=== PATIENT | female | born 1955 | race Caucasian/White ===

== ENCOUNTER 2016-11-30 02:15 | Emergency (ER) | payer OTHER ==
[~2016-11-30] VITALS: Ht 165.1 cm; Wt 78.0 kg
[~2016-11-30 02:15] MED LIST: ALPR.25T PO; ALPR0.2550; ASP81TEC PO; CALC-80 PO; CYCL10TA9 PO; FEXO180T; FURO20TA4 PO; IRBE1TAB15 PO; LEVO5TAB12 PO; MMT17NA; MTP25TSR PO; MULT-963 PO; NAPR550T PO; NF-ESOM40C PO; NF-LOVAZAC PO; OMEG1CAP51; POTASSIUM PO; TRAZ50TA67 PO; TRIAMCINOL NSEACH; VITA1CAP59 PO; VIVELLE TD
[2016-11-30] MEDS ORDERED: OMEG-105 (02:31)
[2016-11-30] MEDS ORDERED: ESTR10TA4 (02:31)
[2016-11-30] MEDS ORDERED: MIRA25TA (02:31)
[2016-11-30] MEDS ORDERED: CALC-6 PO (02:31)
[2016-11-30] MEDS ORDERED: LEVO5TAB12 (02:31)
[2016-11-30] MEDS ORDERED: POTA20TA8 (02:31)
[2016-11-30] MEDS ORDERED: ALPR0.254 (02:31)
[2016-11-30] MEDS ORDERED: ESOM40CA52 (02:31)
[2016-11-30] MEDS ORDERED: METO-270 (02:31)
[2016-11-30] MEDS ORDERED: IRBE1TAB41 (02:31)
[2016-11-30] MEDS ORDERED: TRAZ-28 PO (02:32)
[2016-11-30] MEDS ORDERED: ASPI-999 PO (02:32)
[2016-11-30 02:43] LABS: BILIRUBIN,URINE NEGATIVE (NEGATIVE); KETONES,URINE NEGATIVE (NEGATIVE); LEUKOCYTE ESTERASE ,URINE 3+ (NEGATIVE); NITRITE,URINE NEGATIVE (NEGATIVE); PH,URINE 6 (5-9); PROTEIN,URINE 4+ (NEGATIVE); UROBILINOGEN,URINE 1 MG/DL (NORMAL)
[2016-11-30 02:48] LABS: CALCIUM OXALATE CRYSTALS,UR FEW /LPF; SQUAMOUS EPITHELIAL CELL,UR 0-2 /HPF
[2016-11-30] MEDS ORDERED: NITR-65 PO (03:43)
[2016-11-30] MEDS ORDERED: PHEN-640 PO (03:43)
--- NOTE | 2016-11-30 03:43 | ED GU-Female ---
General Chief Complaint: -Female Stated Complaint: BLADDER PAIN,BLOOD IN URINE Nursing Triage Note: Patient reports waking up at 0100 to urinate and noticed that she had blood in her urine and keeps to feel that she has to void and isn't able to void much Nursing Sepsis Screen: No Definite Risk Source: patient Exam Limitations: no limitations History of Present Illness Time seen by provider: 02:19 Initial Comments This 61-year-old lady presents to the emergency room with dysuria and hematuria this started around 01:00. She woke with these symptoms. She has some suprapubic pressure associated with these symptoms. She denies fever, nausea, vomiting, diarrhea, constipation, or any other acute symptoms. Allergies and Home Medications Allergies Coded Allergies: No Known Drug Allergies (Verified , 12/22/09) Home Medications Alprazolam 0.25 Mg Tablet #90 (Reported) Aspirin 81 Mg Tab.chew 81 MG PO (Reported) Calcium Carbonate/Vitamin D3 1 Each Tablet 1 EACH PO (Reported) Esomeprazole Magnesium 40 Mg Capsule.dr #90 (Reported) Estradiol 10 Mcg Tablet #24 (Reported) Irbesartan/Hydrochlorothiazide 1 Tab Tablet 1 TAB PO DAILY (Reported) Irbesartan/Hydrochlorothiazide 1 Each Tablet #90 (Reported) Levocetirizine Dihydrochloride 5 Mg Tablet #90 (Reported) Metoprolol Succinate 25 Mg Tab.er.24h #90 (Reported) Mirabegron 25 Mg Tab.er.24h #90 (Reported) Nitrofurantoin Monohyd/M-Cryst 100 Mg Capsule #14 100 MG PO BID Prescribed by: SIENA RAJAN on 11/30/16 0343 [place]-3 Acid Ethyl Esters 1 Gm Capsule #360 (Reported) Phenazopyridine HCl 200 Mg Tablet #15 1 TAB PO TID PRN PRN PAIN Prescribed by: SIENA RAJAN on 11/30/16 0343 Potassium Chloride 20 Meq Tab.er.prt #90 (Reported) Trazodone HCl 50 Mg Tablet 50 MG PO (Reported) Constitutional: no symptoms reported EENTM: no symptoms reported Respiratory: no symptoms reported Cardiovascular: no symptoms reported Gastrointestinal: no symptoms reported Genitourinary: see HPI Musculoskeletal: no symptoms reported Skin: no symptoms reported Psychiatric/Neurological: No Symptoms Reported Past Hnrwxal-Cnwnlr-Wkgdkx Hx Patient Social History Alcohol Use: Denies Use Recreational Drug Use: No Smoking Status: Former Smoker (quit 2004) Recent Foreign Travel: No Contact w/Someone Who Travel: No Recent Infectious Disease Expo: No Recent Hopitalizations: No Physical Abuse Screen: No Sexual Abuse: No Immunizations Up To Date Date of Pneumonia Vaccine: Sep 21, 2009 Date of Influenza Vaccine: Sep 01, 2012 Surgeries HX Surgeries: Yes (bilateral hip) Surgeries: Adenoidectomy, Ear Surgery, Gallbladder, Hysterectomy, Joint Replacement, Orthopedic, Tonsillectomy Respiratory Hx Respiratory Disorders: No Cardiovascular Hx Cardiac Disorders: Yes Cardiac Disorders: Hypertension Neurological Hx Neurological Disorders: No Reproductive System Hx Reproductive Disorders: No Genitourinary Hx Genitourinary Disorders: No Gastrointestinal Hx Gastrointestinal Disorders: No Musculoskeletal Hx Musculoskeletal Disorders: Yes (HIP REPLACEMENT) Endocrine Hx Endocrine Disorders: No HEENT HX ENT Disorders: No Cancer Hx Cancer: No Psychosocial Hx Psychiatric Problems: No Blood Transfusions Hx Blood Disorders: No Physical Exam Vital Signs Vital Sign - Last 12Hours 11/30/16 02:25 Temp 97.6 Pulse 100 Resp 18 B/P 148/95 Pulse Ox 98 Capillary Refill : Less Than 3 Seconds General Appearance: WD/WN no apparent distress HEENT: normal ENT inspection Cardiovascular: regular rate, rhythm no edema no murmur Respiratory: lungs clear normal breath sounds no respiratory distress no accessory muscle use Gastrointestinal: soft tenderness (mild suprapubic tenderness) Back: no CVA tenderness Extremities: normal inspection Neurologic/Psychiatric: bench assembler II-XII nml as tested no motor/sensory deficits alert normal mood/affect oriented x 3 Skin: normal color warm/dry Progress/Results/Core Measures Results/Orders Lab Results Laboratory Tests Test 11/30/16 02:25 Range/Units Urine Bacteria FEW H /HPF Urine Bilirubin NEGATIVE NEGATIVE Urine Calcium Oxalate Crystals FEW H /LPF Urine Casts NONE /LPF Urine Clarity BLOODY H Urine Color RED H Urine Crystals PRESENT H /LPF Urine Culture Indicated YES Urine Glucose (UA) NEGATIVE NEGATIVE Urine Ketones NEGATIVE NEGATIVE Urine Leukocyte Esterase 3+ H NEGATIVE Urine Mucus NEGATIVE /LPF Urine Nitrite NEGATIVE NEGATIVE Urine Protein 4+ NEGATIVE Urine RBC TNTC H /HPF Urine RBC (Auto) 5+ H NEGATIVE Urine Specific [place] 1.025 H 1.016-1.022 Urine Squamous Epithelial Cells 0-2 /HPF Urine Urobilinogen 1 NORMAL MG/DL Urine WBC 5-10 H /HPF Urine pH 6 5-9 My Orders Orders-SIENA ZULETA MD Ua Culture If Indicated (11/30/16 02:19) Urine Culture (11/30/16 02:25) Phenazopyridine Tablet (Pyridium Tablet) (11/30/16 03:45) Nitrofurantoin Capsule,Macro (Macrobid C (11/30/16 03:45) Nitrofurantoin Capsule (Macrodantin Caps (11/30/16 03:45) Medications Given in ED Current Medications Medications Dose Ordered Sig/Jolly Route Start Time Stop Time Status Last Admin Dose Admin Nitrofurantoin Macrocrystals 100 mg ONCE ONCE PO 11/30/16 03:45 11/30/16 03:47 DC 11/30/16 03:47 100 MG Phenazopyridine HCl 200 mg ONCE ONCE PO 11/30/16 03:45 11/30/16 03:46 DC 11/30/16 03:48 200 MG Vital Signs/I&O Vital Sign - Last 12Hours 11/30/16 11/30/16 02:25 03:50 Temp 97.6 97.6 Pulse 100 100 Resp 18 18 B/P 148/95 Pulse Ox 98 98 Blood Pressure Mean: 112 Progress Note : Progress Note Patient's symptoms and degree of pain are not really consistent with ureteral stone. Patient's UA is consistent with urinary tract infection with significant hematuria. She was started on Macrobid and Pyridium. The importance of close follow-up was stressed especially given hematuria in context of her smoking history. Departure Impression Impression: Primary Impression: Urinary tract infection Qualified Code: N39.0 - Urinary tract infection, site not specified Additional Impression: Hematuria Disposition: 01 HOME, SELF-CARE Condition: Improved Departure-Patient Inst. Decision time for Depature: 03:35 Referrals: MERARI TILLEY DO (PCP/Family) Primary Care Physician Patient Instructions: Blood in the Urine (Hematuria) in Adults, Urinary Tract Infection, Adult (DC) Add. Discharge Instructions: Complete your antibiotics as prescribed unless otherwise instructed. Drink plenty of clear liquids. Follow-up with your primary care provider by phone or with the emergency room by phone in about 48 hours to review urine culture. This will ensure you're taking an antibiotic effective for your particular bladder infection. You need to follow-up with your primary care provider in 1 or 2 weeks to have a repeat urinalysis to ensure the blood in your urine clears. Return to the emergency room if symptoms worsen. Please be aware that both of your prescribed medications may cause and oranges sure reddish color change to your urine. All discharge instructions reviewed with patient and/or family. Voiced understanding. Scripts Phenazopyridine HCl (Pyridium)200 Mg Tablet1 Tab PO TID PRN PAIN #15 TAB Prov:SIENA ZULETA MD 11/30/16 Nitrofurantoin Monohyd/M-Cryst (Macrobid 100 mg Capsule)100 Mg Ujolhpy445 Mg PO BID #14 EA Prov:SIENA ZULETA MD 11/30/16 SIENA ZULETA MD Nov 30, 2016 03:43
[2016-11-30] MEDS ORDERED: PHENAZOPYRIDINE 100 MG (PYRIDIUM) TABLET PO ONE (03:45)
[2016-11-30] MEDS ORDERED: NITROFURANTOIN 50 MG (MACRODANTIN) CAP PO ONE (03:45)
[2016-11-30] MEDS ORDERED: NITROFURANTOIN 100 MG (MACROBID) CAPSULE PO ONE (03:45)
[2016-11-30 03:50] VITALS: BP 148/95
== END 2016-11-30 03:49 | disposition home or self-care (01) ==
LOC: EDUNIT# 02:15 → ER 02:19
DX: N39.0 Urinary tract infection, site not specified (principal); R31.9 Hematuria, unspecified; I10 Essential (primary) hypertension; Z79.82 Long term (current) use of aspirin; Z79.899 Other long term (current) drug therapy
CPT/HCPCS: 81000; 87088; 87186; 99283

== ENCOUNTER → 2017-02-07 | Outpatient (CLI) | payer OTHER ==
[~2017-02-07] MED LIST changes: +ALPR0.254; +ASPI-999 PO; +CALC-6 PO; +ESOM40CA52; +ESTR10TA4; +IRBE1TAB41; +LEVO5TAB12; +METO-270; +MIRA25TA; +NITR-65 PO; +OMEG-105; +PHEN-640 PO; +POTA20TA8; +TRAZ-28 PO
--- OUTSIDE RECORDS SUMMARY | 2017-02-07 07:32 | XMS REPORT | Continuity of Care Document ---
Author Author [facility] Organization [facility] Address Unknown Phone Unavailable Care Team Providers Care Irrigation Manager Name Role Phone MERARI TILLEY DO PCP Insurance Providers Payer Name Policy Number Subscriber Name Relationship [facility] [id number] Woody Xiao 18 Self / Same As Patient Advance Directives Directive Response Recorded Date/Time Advance Directives No 11/30/16 2:25am Health Care Power of Sr. Payroll Processor No 11/30/16 2:25am Organ Donor No 11/30/16 2:25am Resuscitation Status Full Code 11/30/16 2:25am Chief Complaint and Reason for Visit Chief Complaint -Female Reason for Visit Urinary tract infection Hematuria Problems Active Problems Medical Problem Onset Date Status Contusion, hip Unknown Acute Hematuria Unknown Acute Muscle strain Unknown Acute Urinary tract infection Unknown Acute Medications Current Home Medications Medication Dose Units Route Directions Days/Qty Instructions Start Date Irbesartan/Hydrochlorothiazide 1 Tab 1 Tab Oral Daily 12/21/09 Estradiol 10 Mcg 24 11/30/16 Mirabegron 25 Mg 90 11/30/16 Metoprolol Succinate 25 Mg 90 11/30/16 [place]-3 Acid Ethyl Esters 1 Gm 360 11/30/16 Alprazolam 0.25 Mg 90 11/30/16 Calcium Carbonate/Vitamin D3 1 Each 1 Each Oral 11/30/16 Potassium Chloride 20 Meq 90 11/30/16 Esomeprazole Magnesium 40 Mg 90 11/30/16 Levocetirizine Dihydrochloride 5 Mg 90 11/30/16 Irbesartan/Hydrochlorothiazide 1 Each 90 11/30/16 Trazodone Hcl 50 Mg 50 Mg Oral 11/30/16 Aspirin 81 Mg 81 Mg Oral 11/30/16 Nitrofurantoin Monohyd/M-Cryst 100 Mg 100 Mg Oral Twice A Day 14 11/30 Phenazopyridine Hcl 200 Mg 1 Tab Oral Three Times A Day as needed for Pain 15 11/30/16 Past Home Medications Medication Directions Ordered Status Alprazolam 0.25 Mg Tab.rapdis, 12/21/09 Discontinued Alprazolam 0.25 Mg Tablet, 1 Tab Oral Daily 12/21/09 Discontinued Fexofenadine Hcl 180 Mg Tablet, 12/21/09 Discontinued Furosemide (Lasix) 20 Mg Tablet, 20 Mg Oral Every Other Day 12/21/09 Discontinued Mometasone Furoate 17 Gm [place], 12/21/09 Discontinued [place]-3 Fatty Acids/Fish Oil 1 Each Capsule, 12/21/09 Discontinued Metoprolol Succinate (Metoprolol Er 25MG) 25 Mg Tab, 25 Mg Oral Bedtime 12/21 Discontinued Esomeprazole Magnesium 40 Mg Capsule.dr, 40 Mg Oral Bedtime 12/21/09 Discontinued Trazodone Hcl 50 Mg Tablet, 50 Mg Oral Bedtime 12/21/09 Discontinued Xbmwz-8-Sdpv Ethyl Esters 1 Gm Capsule, 2 Cap Oral Twice A Day 07/02/12 Discontinued Levocetirizine Dihydrochloride 5 Mg Tablet, 1 Tab Oral Daily 07/02/12 Discontinued [Vivelle] , 1 Patch Transderm Every 5 Days 07/02/12 Discontinued [Potassium] , 1 Tab Oral Daily 07/02/12 Discontinued Naproxen Sodium 550 Mg Tablet, 550 Mg Oral Twice A Day 07/02/12 Discontinued Cyclobenzaprine Hcl (Flexeril) 10 Mg Tablet, 1 Each Oral Three Times A Day And Prn 07/02/12 Discontinued Calcium Carbonate/Vitamin D3 1 Each Tablet, 1 Each Oral Twice A Day 10/06/12 Discontinued Multivitamin 1 Each Tablet, 1 Each Oral Daily 10/06/12 Discontinued Vitamin B Complex 1 Cap Capsule, 1 Cap Oral Daily 10/06/12 Discontinued Aspirin 81 Mg [place], 81 Mg Oral Daily 10/06/12 Discontinued [Triamcinol [place]] , 2 Spr Each Nostril Daily 10/06/12 Discontinued Social History Social History Problem Response Recorded Date/Time Alcohol Use Denies Use 11/30/2016 2:25am Recreational Drug Use No 11/30/2016 2:25am Recent Foreign Travel No 11/30/2016 2:25am Recent Infectious Disease Exposure No 11/30/2016 2:25am Hospitalization with Isolation Denies 11/30/2016 2:25am Smoking Status Never a Smoker 11/30/2016 2:25am Recent Hopitalizations No 11/30/2016 2:25am Hospitalization with Isolation Denies 11/30/2016 2:25am Query Response Start Date Stop Date Smoking Status Never a Smoker Hospital Discharge Instructions No hospital discharge instructions. Plan of Care Discharge Date 11/30/16 3:49am Disposition 01 HOME, SELF-CARE Condition at Discharge Improved Instructions/Education Provided Blood in the Urine (Hematuria) in Adults Urinary Tract Infection, Adult (DC) Prescriptions See Medication Section Referrals MERARI TILLEY DO - Primary Care Physician Additional Instructions/Education Complete your antibiotics as prescribed unless otherwise instructed. Drink plenty of clear liquids. Follow-up with your primary care provider by phone or with the emergency room by phone in about 48 hours to review urine culture. This will ensure you're taking an antibiotic effective for your particular bladder infection. You need to follow-up with your primary care provider in 1 or 2 weeks to have a repeat urinalysis to ensure the blood in your urine clears. Return to the emergency room if symptoms worsen. Please be aware that both of your prescribed medications may cause and oranges sure reddish color change to your urine. All discharge instructions reviewed with patient and/or family. Voiced understanding. Functional Status No functional status results. Allergies, Adverse Reactions, Alerts No known allergies. Immunizations No immunization records. Vital Signs Acute Vital Signs Vital Response Date/Time Temperature (Fahrenheit) 97.6 degrees F (97.6 - 99.5) 11/30/2016 2:25am Temperature (Calculated Celsius) 36.91731 degrees C (36.4 - 37.5) 11/30/2016 2:25am Pulse Rate (adult) 100 bpm (60 - 90) 11/30/2016 2:25am Respiratory Rate 18 bpm (12 - 24) 11/30/2016 2:25am O2 Sat by Pulse Oximetry 98 % (88 - 100) 11/30/2016 2:25am Blood Pressure 148/95 mm Hg 11/30/2016 2:25am Blood Pressure Mean 112 mm Hg 11/30/2016 2:25am Pain Numeric Pain Scale 0-No Pain 11/30/2016 2:25am Height (Feet) 5 feet 11/30/2016 2:25am Height (Inches) 5 inches 11/30/2016 2:25am Height (Calculated Centimeters) 165.417089 cm 11/30/2016 2:25am Weight (Pounds) 172 pounds 11/30/2016 2:25am Weight (Calculated Kilograms) 78.264560 kilograms 11/30/2016 2:25am Capillary Refill Capillary Refill Less Than 3 Seconds 11/30/2016 2:25am Height 5 ft 5 in Weight 172 lb Body Mass Index 28.6 kg/m^2 Results Laboratory Results Test Name Result Units Flags Reference Collection Date/Time Result Date/ Time Comments Urine Color RED * 11/30/2016 2:25am 11/30/2016 2:49am Urine Clarity BLOODY * 11/30/2016 2:25am 11/30/2016 2:49am Urine pH 6 5-9 11/30/2016 2:25am 11/30/2016 2:49am Urine Specific [place] 1.025 * 1.016-1.022 11/30/2016 2:25am 2016 2:49am Urine Protein 4+ NEGATIVE 11/30/2016 2:25am 11/30/2016 2:49am Urine Glucose (UA) NEGATIVE NEGATIVE 11/30/2016 2:25am 11/30/2016 2: 49am Urine RBC (Auto) 5+ * NEGATIVE 11/30/2016 2:25am 11/30/2016 2:49am Urine Ketones NEGATIVE NEGATIVE 11/30/2016 2:25am 11/30/2016 2:49am Urine Nitrite NEGATIVE NEGATIVE 11/30/2016 2:25am 11/30/2016 2:49am Urine Bilirubin NEGATIVE NEGATIVE 11/30/2016 2:25am 11/30/2016 2: 49am Urine Urobilinogen 1 MG/DL NORMAL 11/30/2016 2:25am 11/30/2016 2:49am Urine Leukocyte Esterase 3+ * NEGATIVE 11/30/2016 2:25am 11/30/2016 2: 49am Urine RBC TNTC /HPF * 11/30/2016 2:25am 11/30/2016 2:49am MICROSCOPIC ANALYSIS PERFORMED ON UNSPUN URINE DUE TO GROSS CELLULAR CONTENT OF SPECIMEN. Urine WBC 5-10 /HPF * 11/30/2016 2:25am 11/30/2016 2:49am Urine Bacteria FEW /HPF * 11/30/2016 2:25am 11/30/2016 2:49am Urine Squamous Epithelial Cells 0-2 /HPF 11/30/2016 2:25am 2016 2:49am Urine Crystals PRESENT /LPF * 11/30/2016 2:25am 11/30/2016 2:49am Urine Calcium Oxalate Crystals FEW /LPF * 11/30/2016 2:25am 11/30/2016 2:49am Urine Casts NONE /LPF 11/30/2016 2:25am 11/30/2016 2:49am Urine Mucus NEGATIVE /LPF 11/30/2016 2:25am 11/30/2016 2:49am Urine Culture Indicated YES 11/30/2016 2:25am 11/30/2016 2:49am Procedures No known history of procedures. Encounters Encounter Location Arrival/Admit Date Discharge/Depart Date Attending Provider Departed Emergency Room [facility] 11/30/16 2:19am 11/30 3:49am SIENA ZULETA MD Recent Diagnosis
--- NOTE | 2017-02-07 10:52 | Diagnostic Imaging Report ---
Hepatic ultrasound. INDICATION: Elevated liver enzymes. FINDINGS: The visualized portions of the pancreas appear unremarkable. The liver demonstrates fairly homogeneous parenchyma with no suspicious mass. There is no intrahepatic biliary dilatation. The CBD is 5 mm in caliber. The gallbladder has been surgically removed. Color Doppler demonstrates hepatopetal flow in the portal vein. The right kidney is 12.7 cm in length. No hydronephrosis or focal lesion seen. No fluid collection in the upper right abdomen seen. IMPRESSION: Unremarkable exam. Dictated by: Dictated on workstation # [id number]
== END ==
LOC: RAD 07:28
PROVIDERS: ATTEND Family Medicine
DX: R74.8 Abnormal levels of other serum enzymes (principal)
CPT/HCPCS: 76705

== ENCOUNTER → 2018-09-12 | Outpatient (CLI) | payer OTHER ==
[~2018-09-12] MED LIST changes: -METO-270; +METO-387; +TRAZ-189 PO; -TRAZ-28 PO
--- NOTE | 2018-09-12 09:34 | Diagnostic Imaging Report ---
Clinical indication: Patient with cough, congestion x3 days. Exam: Chest x-ray PA and lateral views. Comparisons: Chest x-ray dated 03/05/2016. Findings: Lungs/pleura: Lungs are clear. There is no pneumothorax. There is no pleural effusion. Mediastinum: Unremarkable. Pulmonary vasculature: Unremarkable. Heart: Unremarkable. Bones/extrathoracic soft tissue: There are mildly hypertrophic spurs seen throughout the thoracic spine. Surgical clips are seen overlying the right upper quadrant which could be related to cholecystectomy changes. Impression: There is no radiographic evidence of acute cardiopulmonary process. Dictated by: Dictated on workstation # [id number]
== END ==
LOC: RAD 09:14
PROVIDERS: ATTEND Nurse Practitioner Family
DX: J20.9 Acute bronchitis, unspecified (principal)
CPT/HCPCS: 71046

== ENCOUNTER → 2019-05-16 | Outpatient (CLI) | payer OTHER ==
[~2019-05-16] MED LIST changes: -TRAZ-189 PO; +TRAZ-222 PO
== END ==
LOC: CARD 07:21
PROVIDERS: ATTEND Internal Medicine Cardiovascular Disease
DX: I10 Essential (primary) hypertension (principal); E78.5 Hyperlipidemia, unspecified; R07.9 Chest pain, unspecified; K21.9 Gastro-esophageal reflux disease without esophagitis; R09.89 Other specified symptoms and signs involving the circulatory and respiratory systems
CPT/HCPCS: 93351

== ENCOUNTER 2022-04-19 19:41 | Emergency (ER) | payer MEDICARE, OTHER ==
[~2022-04-19] VITALS: Ht 162 cm; Wt 85.0 kg
[~2022-04-19 19:41] MED LIST changes: +ALPR.25T; -ALPR0.254; -CALC-6 PO; +CALC1TAB84 PO; -METO-387; +MTP25TSR; -OMEG-105; +OMEG-218; +POTA-169; -POTA20TA8; -TRAZ-222 PO; +TRZ50T PO
[2022-04-19] MEDS ORDERED: cloNIDine 0.1 MG (CATAPRES) TAB PO ONE (20:00)
[2022-04-19] MEDS ORDERED: LORazepam 0.5 MG (ATIVAN) TABLET PO ONE (20:00)
[2022-04-19 20:15] LABS: ALBUMIN 4.6 GM/DL (3.2-4.5); CHLORIDE 103 MMOL/L (98-107); POTASSIUM 4.2 MMOL/L (3.6-5.0); SODIUM 139 MMOL/L (135-145)
[2022-04-19 20:16] LABS: CALCIUM 11.2 MG/DL (8.5-10.1)
[2022-04-19 20:17] LABS: GLUCOSE 127 MG/DL (70-105); TOTAL PROTEIN 8.1 GM/DL (6.4-8.2)
[2022-04-19 20:18] LABS: CARBON DIOXIDE 20 MMOL/L (21-32)
[2022-04-19 20:19] LABS: BILIRUBIN,TOTAL 0.5 MG/DL (0.1-1.0)
[2022-04-19 20:20] LABS: ALKALINE PHOSPHATASE 80 U/L (40-136)
[2022-04-19 20:21] LABS: CREATININE SERUM 0.73 MG/DL (0.60-1.30); GFR ESTIMATED 91
[2022-04-19 20:22] LABS: BUN/CREATININE RATIO 23
[2022-04-19 20:24] LABS: ALANINE AMINOTRANSFERASE 68 U/L (0-55)
--- NOTE | 2022-04-19 20:25 | ED Cardiac General ---
History of Present Illness General Chief Complaint: Cardiac/General Problems Stated Complaint: HIGH BP 146/101 Nursing Triage Note: PT TO ED W/ C/O ELEVATED BP ONSET X2-3 DAYS, WORSE TODAY. PT REPORTS DR NIXON RECENTLY ADDED ANOTHER BP MED TO HER DAILY MEDS. PT DENIES CP, SOB, N/V. NO OTHER C/O VOICED. Source: patient Exam Limitations: no limitations History of Present Illness Date Seen by Provider: April 19, 2022 Time Seen by Provider: 20:22 Initial Comments To ER with high blood pressure worsening over the past 2 to 3 days. She takes metoprolol 50 mg at at bedtime, irbesartan/HCTZ and was recently started on Norvasc 5 mg daily for this hypertension. She follows with Dr. Nixon. Her tells me that she checks her blood pressure every couple of hours because she is nervous. She reports that she feels okay now with the exception of maybe some blurred vision. Her blood pressure at home was up to 140/100. Timing/Duration: changing over time, 1-2 days Severity: moderate Activities at Onset: none Prior CP/Workup: no prior chest pain ASA po DIRECTOR AIRPORT: No Associated Systoms: Denies Symptoms Allergies and Home Medications Allergies Coded Allergies: No Known Drug Allergies (Verified , 12/22/09) Patient Home Medication List Home Medication List Reviewed: Yes ALPRAZolam (Xanax Tablet) 0.25 Mg Tablet, (Reported) Entered as Reported by: BEN SWIFT on 11/30/16230 Aspirin (Aspirin) 81 Mg Tab.chew, 81 MG PO, (Reported) Entered as Reported by: BEN SWIFT on 11/30/16231 Calcium Carbonate/Vitamin D3 (Calcium 600 + Vit D 200 Tablet) 1 Each Tablet, 1 EACH PO, (Reported) Entered as Reported by: BEN SWIFT on 11/30/16230 Esomeprazole Magnesium (Esomeprazole Magnesium) 40 Mg Capsule., (Reported) Entered as Reported by: BEN SWIFT on 11/30/16230 Estradiol (Yuvafem) 10 Mcg Tablet, (Reported) Entered as Reported by: BEN SWIFT on 11/30/16230 Irbesartan/Hydrochlorothiazide (Avalide 150-12.5 Mg Tablet) 1 Tab Tablet, 1 TAB PO DAILY, (Reported) Entered as Reported by: EMIL TEJADA on 12/21/09 1554 Irbesartan/Hydrochlorothiazide (Irbesartan-Hctz 150-12.5 mg Tb) 1 Each Tablet, (Reported) Entered as Reported by: BEN SWIFT on 11/30/16230 Levocetirizine Dihydrochloride (Levocetirizine Dihydrochloride) 5 Mg Tablet, (Reported) Entered as Reported by: BEN SWIFT on 11/30/16230 Metoprolol Succinate (Metoprolol Succinate) 25 Mg Tab.er.24h, (Reported) Entered as Reported by: BEN SWIFT on 11/30/16230 Mirabegron (Myrbetriq) 25 Mg Tab.er.24h, (Reported) Entered as Reported by: BEN SWIFT on 11/30/16230 Nitrofurantoin Monohyd/M-Cryst (Macrobid 100 mg Capsule) 100 Mg Capsule, 100 MG PO BID Prescribed by: SIENA RAJAN on 11/30/16342 [place]-3 Acid Ethyl Esters ([place]-3 Acid Ethyl Esters) 1 Gm Capsule, (Reported) Entered as Reported by: BEN SWIFT on 11/30/16230 Phenazopyridine HCl (Pyridium) 200 Mg Tablet, 1 TAB PO TID PRN for PAIN Prescribed by: SIENA RAJAN on 11/30/16342 Potassium Chloride (Klor-Con M20) 20 Meq Tab.er.prt, (Reported) Entered as Reported by: BEN SWIFT on 11/30/16230 Trazodone HCl (Trazodone HCl) 50 Mg Tablet, 50 MG PO, (Reported) Entered as Reported by: BEN SWIFT on 11/30/16231 Review of Systems Review of Systems Constitutional: see HPI EENTM: No Symptoms Reported Respiratory: No Symptoms Reported; Denies Orthopnea, Denies Shortness of Air, Denies SOA With Exertion, Denies SOA at Rest Cardiovascular: See HPI; Denies Chest Pain Gastrointestinal: No Symptoms Reported Genitourinary: No Symptoms Reported Musculoskeletal: no symptoms reported Skin: no symptoms reported Psychiatric/Neurological: No Symptoms Reported Endocrine: No Symptoms Reported Past Hqpksgw-Wxzfgc-Hakdje Hx Patient Social History Tobacco Use?: No Use of E-Cig and/or Vaping dev: No Substance use?: No Alcohol Use?: No Pt feels they are or have been: No Past Medical History Surgery/Hospitalization HX: HTN, HIP SURG X2, [facility]ARTA, HYST Adenoidectomy, Ear Surgery, Gallbladder, Hysterectomy, Joint Replacement, O rthopedic, Tonsillectomy Hypertension Reproductive Disorders: No Physical Exam Vital Signs Vital Signs - First Documented 04/19/22 19:47 Temp 36.1 Pulse 113 Resp 20 B/P (MAP) 199/110 (139) Pulse Ox 97 O2 Delivery Room Air Capillary Refill : Less Than 3 Seconds Height, Weight, BMI Height: 5'5" Weight: 172lbs. oz. 78.307688sm; 32.00 BMI Method:Stated General Appearance: No Apparent Distress, WD/WN Neck: Full Range of Motion, Normal Inspection Respiratory: Normal Breath Sounds, No Accessory Muscle Use, No Respiratory Distress Cardiovascular: Regular Rate, Rhythm, Normal Peripheral Pulses Gastrointestinal: Normal Bowel Sounds, Non Tender, Soft Extremity: Normal Capillary Refill, Normal Inspection Neurologic/Psychiatric: Alert, Oriented x3 Skin: Normal Color, Warm/Dry Progress/Results/Core Measures Results/Orders Lab Results Laboratory Tests Test 04/19/22 20:00 Range/Units Sodium Level 139 135-145 MMOL/L Potassium Level 4.2 3.6-5.0 MMOL/L Chloride Level 103 98-107 MMOL/L Carbon Dioxide Level 20 L 21-32 MMOL/L Anion Gap 16 H 5-14 MMOL/L Blood Urea Nitrogen 17 7-18 MG/DL Creatinine 0.73 0.60-1.30 MG/DL Estimat Glomerular Filtration Rate 91 BUN/Creatinine Ratio 23 Glucose Level 127 H 70-105 MG/DL Calcium Level 11.2 H 8.5-10.1 MG/DL Corrected Calcium 8.5-10.1 MG/DL Total Bilirubin 0.5 0.1-1.0 MG/DL Alkaline Phosphatase 80 40-136 U/L Total Protein 8.1 6.4-8.2 GM/DL Albumin 4.6 H 3.2-4.5 GM/DL My Orders Orders - RIVERA HENRY APRN Lorazepam Tablet (Ativan Tablet) (04/19/22 20:00) Clonidine Tablet (Catapres Tablet) (04/19/22 20:00) Cbc With Automated Diff (04/19/22 19:53) Comprehensive Metabolic Panel (04/19/22 19:53) Ed Iv/Invasive Line Start (04/19/22 19:53) Medications Given in ED Current Medications Medications Dose Ordered Sig/Jolly Route Start Time Stop Time Status Last Admin Dose Admin Lorazepam 0.5 mg ONCE ONCE PO 04/19/22 20:00 04/19/22 20:01 DC 04/19/22 20:08 0.5 MG Vital Signs/I&O 04/19/22 19:47 Temp 36.1 Pulse 113 Resp 20 B/P (MAP) 199/110 (139) Pulse Ox 97 O2 Delivery Room Air Blood Pressure Mean: 139 Departure Impression Primary Impression: High blood pressure Disposition: HOME, SELF-CARE Condition: Stable Departure-Patient Inst. Decision time for Depature: 20:24 Referrals: MERARI TILLEY DO (PCP/Family) Primary Care Physician Patient Instructions: High Blood Pressure ED RIVERA HENRY APRN April 19, 2022 20:25
[2022-04-19 20:39] LABS: BASOPHILS # (AUTO) 0.1 10^3/uL (0.0-0.1); BASOPHILS % (AUTO) 1 % (0-10); EOSINOPHILS # (AUTO) 0.1 10^3/uL (0.0-0.3); EOSINOPHILS % (AUTO) 1 % (0-10); HEMATOCRIT 41 % (35-52); HEMOGLOBIN 13.3 g/dL (11.5-16.0); LYMPHOCYTES # (AUTO) 2.5 10^3/uL (1.0-4.0); LYMPHOCYTES % (AUTO) 25 % (12-44); MEAN CORPUSCULAR HEMOGLOBIN 28 pg (25-34); MEAN CORPUSCULAR HGB CONC 33 g/dL (32-36); MEAN CORPUSCULAR VOLUME 87 fL (80-99); MEAN PLATELET VOLUME 9.9 fL (9.0-12.2); MONOCYTES # (AUTO) 0.5 10^3/uL (0.0-1.0); MONOCYTES % (AUTO) 5 % (0-12); NEUTROPHILS # (AUTO) 6.9 10^3/uL (1.8-7.8); NEUTROPHILS % (AUTO) 68 % (42-75); PLATELET COUNT 277 10^3/uL (130-400); WHITE BLOOD COUNT 10.1 10^3/uL (4.3-11.0)
[2022-04-19 20:50] VITALS: BP 151/84
== END 2022-04-19 20:53 | disposition home or self-care (01) ==
LOC: EDUNIT# 19:41 → ER 19:43
DX: I10 Essential (primary) hypertension (principal); Z79.899 Other long term (current) drug therapy
CPT/HCPCS: 36415; 80053; 85025; 99283

== ENCOUNTER → 2023-09-07 | Outpatient (CLI) | payer MEDICARE, OTHER ==
[~2023-09-07] MED LIST changes: +CATHETER FLUSH 10 ML SYR IVP PRN
[2023-09-07 13:03] VITALS: BP 157/91
--- NOTE | 2023-09-07 15:24 | Cardiology Stress Test Report ---
Stress Test Report Date of Procedure/Referring: Date of Procedure: Sep 07, 2023 PCP Damian Rodríguez MD Admitting Physician Admitting Physician: Attending Physician: Brandy Richards Baseline Heart Rate: 68 Baseline Blood Pressure: Blood Pressure Systolic: 157 Blood Pressure Diastolic: 91 Vital Signs Date Time Temp Pulse Resp B/P (MAP) Pulse Ox O2 Delivery O2 Flow Rate FiO2 09/07/23 13:03 68 157/91 (113) Baseline Vital Signs Vital Signs Date Time Temp Pulse Resp B/P (MAP) Pulse Ox O2 Delivery O2 Flow Rate FiO2 09/07/23 13:03 68 157/91 (113) Baseline EKG: Baseline EKG: NSR Summary: After explaining the procedure and details to the patient, she signed the consent and was brought to the stress nuclear laboratory. Patient exercised on standard Taz protocol, EKG, heart rate and blood pressure were monitored continuously, resting and stress doses of radio tracer were injected, imaging was acquired and reviewed in the short axis, horizontal long axis and vertical long axis views Patient was able to exercise for a total of 8 minutes on Taz protocol, METs 8.9 Maximum heart rate 127 Maximum blood pressure 196/105 Stress EKG, Minimal nondiagnostic changes Recovery EKG, Return to baseline TID: 0.88 SSS: 1 SDS: 1 EF: 78 Conclusion: Good exercise tolerance for 8 minutes on standard Taz protocol, 8.9 METS achieving 83% of maximal expected heart rate Appropriate heart rate and blood pressure response to exercise return to baseline during recovery Nondiagnostic EKG changes with exercise return to baseline during recovery No ischemia or infarction noted on SPECT images Normal left ventricular size, ejection fraction 78% Copy Copies To 1: MERARI TILLEY BASHAR J MD Sep 07, 2023 15:24
== END ==
LOC: CARD 10:05
PROVIDERS: ATTEND Physician Assistant
DX: I34.0 Nonrheumatic mitral (valve) insufficiency (principal); I10 Essential (primary) hypertension; I25.10 Atherosclerotic heart disease of native coronary artery without angina pectoris
CPT/HCPCS: 78452; 93017; A9502; C8929; 93306